=== PATIENT | male | born 1940 | race Caucasian/White ===

== ENCOUNTER → 2022-08-19 | Outpatient (CLI) | payer MEDICARE ==
--- NOTE | 2022-08-19 19:35 | MR ---
EXAMINATION TYPE: MR Prostate wo/w con DATE OF EXAM: 08/19/2022 9:49 AM COMPARISON: None CLINICAL INDICATION:Male, 82 years old with history of C61 prostate ca; TECHNIQUE: Multi-planar, multi-sequence imaging of the pelvis is performed prior to and following the uncomplicated administration of bolus intravenous gadolinium. CONTRAST: 8 Gadavist Interpretive Criteria: PI-RADS v2.1 SERUM PSA: 2.4 on 12/17/2021 2.68 on 08/06/2021 SURGICAL PATHOLOGY: 07/24/2020: Right lateral apex prostate 4+3 [place] 7 Left medial apex and left lateral mid prostate atypical small acinar proliferation FINDINGS: Prostatic dimensions: 5.0 x 5.4 x 2.8 cm . "Bullet" Volume:49.48 (PSA density=0.05 ng/mL/mL) CENTRAL GLAND (Central and Transition Zones/CZ+TZ): Multiple bilateral, heterogenous appearing hypertrophic stromal nodules, without suspicious lesion. M inimal median lobe hypertrophy with protrusion into the base of the bladder. (PI-RADS 2) PERIPHERAL ZONE (PZ): Limited evaluation on diffusion-weighted imaging secondary to gas within the rectum. Area of low T2 signal present in the right posterior peripheral zone measuring 9 x 5 mm somewhat wed ge-shaped but poorly evaluated on diffusion-weighted imaging due to gas within the rectum. SEMINAL VESICLES (SV): Symmetric and unremarkable. PERIPROSTATIC TISSUES: Unremarkable. LYMPH NODES: No enlarged pelvic lymph node. REMAINING PELVIS: Trabeculated bladder wall likely secondary to chronic bladder outlet obstruction. No abnormal free or organized intrapelvic fluid collection. No pathologic bowel dilation or mural thickening. Small right hydrocele. Bilateral fat-containing inguinal hernias. OSSEOUS STRUCTURES: No suspicious osseous abnormality. IMPRESSION: 1. Limited evaluation secondary to gas within the rectum and poor visibility of the posterior prostat e gland diffusion-weighted imaging. There is a PI-RADS 3 lesion in the posterior right aspect which i s partially evaluated in the peripheral zone which is low T2 signal , limited evaluation due on diffu joaquin-weighted imaging secondary to a forementioned gas within the rectum. Consider repeat diffusion w eighted imaging only. 2. No suspicious osseous lesion. No lymphadenopathy. No evidence of prostate adenocarcinoma involving the periprostatic tissues.
== END | disposition home or self-care (01) ==
LOC: RADMRIMAIN 07:24
PROVIDERS: ATTEND Urology
DX: C61 Malignant neoplasm of prostate (principal)
CPT/HCPCS: 72197; A9585

== ENCOUNTER → 2022-10-22 | Outpatient (CLI) | payer MEDICARE ==
[2022-10-22 20:36] LABS: Appearance,Urine Clear (Clear); Bilirubin,Urine Negative (Negative); Blood,Urine Negative (Negative); Color,Urine Yellow (Yellow); Ketones,Urine 15 (Negative); Nitrite,Urine Negative (Negative); PH, Urine 5.5; Specific Gravity,Urine 1.017 (1.001-1.030)
[2022-10-22 20:51] LABS: BUN/Creat Ratio 16.78 Ratio (12.00-20.00); Blood Urea Nitrogen 15.1 mg/dL (9.0-27.0); Calcium 9.4 mg/dL (8.7-10.3); Carbon Dioxide 25.1 mmol/L (21.6-31.8); Chloride 105 mmol/L (96-109); Glucose 97 mg/dL (70-110); Potassium 4.3 mmol/L (3.5-5.5); Sodium 142 mmol/L (135-145)
[2022-10-22 23:47] LABS: Basophils # (A) 0.05 X 10*3/uL (0.00-0.10); Basophils % (A) 0.6 %; Eosinophils # (A) 0.04 X 10*3/uL (0.04-0.35); Eosinophils % (A) 0.5 %; HCT 41.1 % (39.6-50.0); HGB 13.3 d/dL (12.0-15.0); Lymphocytes # (A) 2.23 X 10*3/uL (0.90-5.00); Lymphocytes % (A) 26.3 %; MCHC 32.4 d/dL (32.0-37.0); MCV 98.8 FL (80.0-97.0); Mean Platelet Volume 10.4 FL (9.5-12.2); Monocytes # (A) 0.71 X 10*3/uL (0.20-1.00); Monocytes % (A) 8.4 %; NRBC Per 100 WBC 0 X 10*3/uL (0.00-0.01); Neutrophils # (A) 5.43 X 10*3/uL (1.80-7.70); Neutrophils % (A) 63.8 %; Platelet Count 200 X 10*3/uL (140-440); RBC 4.16 X 10*6/uL (4.40-5.60); RDW 13.1 % (11.5-14.5); WBC 8.49 X 10*3/uL (4.50-10.00)
== END | disposition home or self-care (01) ==
LOC: LABPAT 13:31
PROVIDERS: ATTEND Urology
DX: Z01.812 Encounter for preprocedural laboratory examination (principal); C61 Malignant neoplasm of prostate
CPT/HCPCS: 80048; 81003; 85025; 87086

== ENCOUNTER 2022-10-29 13:14 | Day surgery (SDC) | payer MEDICARE ==
--- NOTE | 2022-10-29 12:42 | P.HPIHPCON ---
History of Present Illness H&P Date: 10/29/22 Chief Complaint: prostate cancer This is an 82-year-old male with history of [place] 7 prostate cancer diagnosed back in [place], currently on active surveillance. 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 Discussed with him given this finding I do recommend repeat sampling to assess for any progression. Risk and benefit and rationale of doing this was discussed in detail. Aware of risk of bleeding and sepsis. Consent for Procedure: I have explained the operation/procedure to the patient, including the risks, benefits, side effects, alternative therapies (including not receiving the proposed treatment or service), the likelihood of the patient achieving his/her goals, and potential recuperation problems for the procedure/sedation/analgesia, as well as any blood products, if indicated. I also explained to the patient the risks, benefits and side effects of the alternatives, as well as the risks related to not receiving the proposed procedure, care, treatment, or services. Past Medical History Past Medical History: Cancer, GERD/Reflux, Hyperlipidemia, Osteoarthritis (OA) Additional Past Medical History / Comment(s): low blood pressure- loop recorder placed due to syncope, DX prostate cancer 2 yrs ago, lower back pain History of Any Multi-Drug Resistant Organisms: None Reported Past Surgical History: Appendectomy, Hernia Repair Additional Past Surgical History / Comment(s): loop recorder. Filipe inguinal repair. rt hand surgery - contracture Additional Past Anesthesia/Blood Transfusion Reaction / Comment(s): heart raced during hernia surgery Smoking Status: Former smoker - Past Family History Mother Family Medical History: Congestive Heart Failure (CHF) Medications and Allergies Home Medications Medication Instructions Recorded Confirmed Type Fludrocortisone [Florinef] 0.1 mg PO DAILY 10/25/22 10/25/22 History Mirabegron [Myrbetriq] 25 mg PO HS 10/25/22 10/25/22 History Pravastatin Sodium [Pravachol] 40 mg PO HS 10/25/22 10/25/22 History Psyllium Husk 100% [Metamucil 12 gm PO DAILY 10/25/22 10/25/22 History Packet] Unk Cherryflex 1 capsule PO DAILY 10/25/22 10/25/22 History Vit C/E/Zn/Coppr/Lutein/Zeaxan 1 each PO DAILY 10/25/22 10/25/22 History [Preservision Areds 2 Softgel] Allergies Allergy/AdvReac Type Severity Reaction Status Date / Time Sulfa (Sulfonamide Allergy Rash/Hives Verified 10/25/22 09:13 Antibiotics) Surgical - Exam - General no distress, no pain - Eyes normal ocular movement, no pale - ENT normal nares, normal mucosa - Respiratory normal expansion, normal respiratory effort Assessment and Plan Assessment: OR for MRI fusion biopsy
[~2022-10-29 13:14] MED LIST: GENTAMICIN 120 MG in SODIUM CHLORIDE 0.9% 100 ML IVPB PRN; LACTATED RINGERS 1,000 ML IV SCH
[2022-10-29 13:44] VITALS: RESP 16; TEMP 97.3
[2022-10-29] MEDS ORDERED: hydrALAZINE HCL 20 MG/ML 1 ML VIAL IVP ONE ×3 (14:04→15:21)
[2022-10-29 15:37] VITALS: PULSE 73
[2022-10-29] MEDS ORDERED: PROPOFOL 10 MG/ML 20 ML VIAL IV ONE (15:37)
--- NOTE | 2022-10-29 16:06 | P.OP ---
Date of Procedure: 10/29/22 Preoperative Diagnosis: Prostate cancer Postoperative Diagnosis: same Procedure(s) Performed: MRI fusion prostate biopsies Implants: none Anesthesia: MAC Surgeon: Butch Romero Pathology: other (Prostate biopsies) Condition: stable Disposition: PACU Indications for Procedure: This is an 82-year-old male with history of [place] 7 prostate cancer diagnosed back in [place], currently on active surveillance. Underwent a prostate MRI that showed evidence of PIRAD 3 lesion at the area of [place] 7. Discussed with him given this finding I do recommend repeat sampling to assess for any progression. Risk and benefit and rationale of doing this was discussed in detail. Aware of risk of bleeding and sepsis. Description of Procedure: The patient was taken to the operating room and placed in the left lateral decubitus position. The [place] transrectal ultrasound probe was placed intrarectally. It was then placed within the stand of the [employer] MRI/TRUS Fusion for Prostate Biopsy system. The prostate was imaged in both the axial and sagittal planes, revealing a prostate volume of 38mL. Using the Biopsy gun, 4 biopsies were obtained from the target lesion, there were was one lesion. The remaining 12 biopsies of the peripheral zone were obtained utilizing a standard template. Once the procedure was completed, the ultrasound probe was removed. The patient tolerated the procedure well was taken to the recovery room stable condition
[2022-10-29 16:32] VITALS: BP 170/68
== END 2022-10-29 17:00 | disposition home or self-care (01) ==
LOC: OR 13:14
PROVIDERS: ATTEND Urology
DX: C61 Malignant neoplasm of prostate (principal); K21.9 Gastro-esophageal reflux disease without esophagitis; E78.5 Hyperlipidemia, unspecified; M19.90 Unspecified osteoarthritis, unspecified site; Z90.49 Acquired absence of other specified parts of digestive tract; Z98.890 Other specified postprocedural states; Z87.891 Personal history of nicotine dependence; Z88.2 Allergy status to sulfonamides; Z79.899 Other long term (current) drug therapy
CPT/HCPCS: 55700; 88344; 88305; J0360; J1580; J2704

== ENCOUNTER → 2024-10-28 | Outpatient (CLI) | payer MEDICARE | END | disposition home or self-care (01) | LOC: LABWHC1 15:46 | PROVIDERS: ATTEND Urology | DX: C61 Malignant neoplasm of prostate (principal) | CPT/HCPCS: 36415; 84153 ==